=== PATIENT | male | born 1955 ===

== ENCOUNTER 2017-01-29 17:02 | Inpatient (IN) ==
[2017-01-29] MEDS ORDERED: NALOXONE HCL 0.4 MG/ML VIAL IV PRN (17:47)
[2017-01-29] MEDS ORDERED: ACETAMINOPHEN 325 MG TABLET PO PRN (17:47)
[2017-01-29] MEDS ORDERED: ONDANSETRON 4 MG/2 ML VIAL IV PRN (17:47)
[2017-01-29] MEDS ORDERED: PIPERACILLIN SODIUM/TAZOBACTAM 3.375 GM in DEXTROSE 5% IN WATER 50 ML IV SCH (18:00)
[2017-01-29] MEDS ORDERED: VANCOMYCIN PER PHARMACY IV SCH (18:03)
--- NOTE | 2017-01-29 19:04 | Internal Med History&Physical ---
Medical - H&P: HPI Patient information: Note initiated : 01/29/17 at 6:56 pm Service Date, if different from initiated Date: [] Patient: Graham Hilario 61 y/o M admitted on 01/29/17 for acute osteomyelitis. Chief Complaint: [] Chief complaint: fever, ankle pain. History of present illness: Mr. Hilario is a 61 year old pleasant male who presented to the outpatient clinic with 2 day history of left ankle pain, swelling and fever. The patient has h/o Transerythrin amylodisis with cardiomyopathy, s/p AICD, pacemaker placement, chr afib, on anticoagulation and follows at [facility]. The patient had a AICD/pacemaker placed last year in July at [facility], after the initial few weeks, the patient noted that there was increased erythema and swelling in the site of the implant. The patients redness was waxing and waning. In january this year, it opened and a significant amount of fluid was removed, since the last 4 weeks, there has been in termittent drainage and healing of the pacemaker implant site. The patient 2 days ago noted pain in the left ankle, initially as a stiffness but later progressed to pain, throbbing in nature, non radiating, 8/10 in severity, making it difficult for him to walk, pain improved with rest, worse with activity. patient pain was accompained by fever , chills and some rigor x 1 day. Pt presented to the clinic with the above symptoms, where he had a usg of the pacemaker pocket, X ray of the ankle, Fluid noted in both sites. S/p drainage by radiology, he had a temp of 100.5, given his possibility of septic arthritis and pacemaker pocket infection, patient was admitted to the hospital for further management. Review of systems: CONSTITUTIONAL: No weight loss, present fever, and chills, and weakness. HEENT: Eyes: No visual loss, blurred vision, double vision or yellow sclerae. Ears, Nose, Throat: No hearing loss, sneezing, congestion, runny nose or sore throat. SKIN: No rash or itching. CARDIOVASCULAR: No chest pain, chest pressure or chest discomfort. No palpitations or edema. RESPIRATORY: No shortness of breath, cough or sputum. GASTROINTESTINAL: No nausea, vomiting or diarrhea or constipation. No abdominal pain or blood in stools No Trini. GENITOURINARY: Denies Burning on urination. Blood in urine, or foul smelling urine NEUROLOGICAL: No headache, dizziness, syncope, paralysis, tremors, numbness or tingling in the extremities. No change in bowel or bladder control. MUSCULOSKELETAL: No muscle, back pain, joint pain or stiffness. HEMATOLOGIC: No bleeding or bruising. No enlarged nodes PSYCHIATRIC: No depression or anxiety. ENDOCRINOLOGIC: No reports of sweating, cold or heat intolerance. No polyuria or polydipsia. ALLERGIES: No hives, eczema or rhinitis. Skin: No rash, no jaundice, cyanosis or pallor. Medical - H&P: PMH Medical history: Medical History Atrial flutter (Chronic) Cardiomyopathy, secondary (Chronic) Closed fracture of clavicle (Chronic) Fracture of finger, closed (Chronic) Gastroesophageal reflux (Chronic) History of prostate cancer (Chronic) Hx of colonic polyps (Chronic) Hyperlipidemia (Chronic) Osteoarthritis (Chronic) Surgical history: Past Surgical History History of heart surgery (Chronic 06/19/16) History of radial keratotomy (Chronic) Hx of adenoidectomy (Chronic) Hx of appendectomy (Chronic) Hx of arthroscopic knee surgery (Chronic) Hx of carpal tunnel repair (Chronic) Hx of knee surgery (Chronic) Hx of lithotripsy (Chronic) Hx of radical prostatectomy (Chronic) Hx of tonsillectomy (Chronic) Hx of vasectomy (Chronic) Family history: reviewed and not pertinent Medical - H&P: Meds Home Medications Medication Instructions Recorded Confirmed Type furosemide 20 mg tablet 40 mg PO QDAY tab 10/30/15 01/29/17 History rivaroxaban 15 mg tablet 15 mg PO QDAY tab 10/30/15 01/29/17 History spironolactone 25 mg tablet 25 mg PO QDAY 10/30/15 01/29/17 History alprostadil 20 mcg intracavernosal 7.5 mcg INTRA-CAVE 3XW PRN #1 each 11/02/16 01/29/17 Rx kit Dofetilide 500 mcg PO Q12H 01/29/17 History Allergies Allergy/AdvReac Type Severity Reaction Status Date / Time No Known Drug Allergies Allergy Verified 01/29/17 14:40 Medical - H&P: Exam - Constitutional Vitals: Temp Pulse Resp BP Pulse Ox 98.8 F 80 20 108/83 100 01/29/17 17:50 04/28/17 17:50 01/29/17 17:47 01/29/17 17:50 01/29/17 17:50 Exam: GENERAL: The patient is a well-developed, well-nourished in no apparent distress. Is alert and oriented x3. VITAL SIGNS: Reviewed and as noted elsewhere. HEENT: Head is normocephalic and atraumatic. Extraocular muscles are intact. Pupils are equal, round, and reactive to light. Nares appeared normal. Mouth appears any without lesions. Mucous membranes are moist. NECK: Normal to inspection, Supple, No lymphadenopathy or thyromegaly. LUNGS: Air entry equal on both sides, no wheezing, crackles or rhonchi noted. No accessory muscles of respiration HEART: Regular rate and rhythm irregular, S1 and S2 heard, no Gallop, S3 or Rub Noted, No Gross murmur heard. ABDOMEN: Soft, nontender, and nondistended. Positive bowel sounds. No hepatosplenomegaly was noted. EXTREMITIES: No cyanosis, clubbing, rash, lesions or edema. NEUROLOGIC: Cranial nerves II through XII are grossly intact. Motor and Sensory System Grossly Intact PSYCHIATRIC: Normal affect, Normal Mood. Appropriate Behavior. SKIN: No ulceration or wounds noted, No jaundice, No rash noted. Chest wall- Pacemaker site noted, area of erthema over the skin, 1cms x 4 cm, no fluctuation noted. Medical - H&P: Reslt - Labs Labs: labs reviewed, done by pcp in the clinic. Medical - H&P: A/P - Narrative A/P Narrative: Assesstment Septic Arthritis/ Osteomyelitis : no h/o gout pacemaker site pocketinfection Atrial Fibrillation transerythrin amylodisis with cardiomyopathy, abnormal liver function test. Plan admit to telemetery Chest wall fluid and ankle fluid sent for analysis, await cultures', synovial fluid cell count crystal analysis pending. IV rocephin and vancomycin for now, Pt seems to be hemodynamically stable get cxr and ua, Will call [place] [facility] once suspicion confirmed for arthritis/ pacemaker site infection as the pacemaker will have to be removed. Dr Vail his local telegrapher agent has not seen him since he was referred to [place]. He will continue his home medications for now, asked to bring from home He has taken his AM pills which include new anti coagulation agent, will verify meds and resume as appropriate. Ortho Consult in AM once septic arthritis verified. Discussed with him the need for xfer to [facility] for pacemaker change may be needed if advised by [facility]. Diet cardiac Code full DVT- Oral anticoagulation. Social History - Social History marital status: education level: college occupational status: employed occupation: Teacher - Tobacco smoking status: Never smoker - Alcohol alcohol intake frequency: holiday/special occasion only
[2017-01-29 19:21] LABS: Appearance,Urine CLEAR; Bilirubin,Urine NEG (NEG); Color,Urine YELLOW; Glucose,Urine (UA) NEGATIVE (NEG); Leukocyte Esterase,Urine NEG /uL (NEG); Nitrate,Urine NEG (NEG); Protein,Urine NEG (NEG); Specific Gravity,Urine 1.015 (1.000-1.035); Urine Blood NEG mg/dL (<0.03); Urobilinogen,Urine NEG (NEG)
[2017-01-29] MEDS ORDERED: cefTRIAXone 2 GM VIAL ONE (20:26)
[2017-01-29] MEDS ORDERED: VANCOMYCIN 500 MG VIAL ONE (20:26)
[2017-01-29] MEDS: cefTRIAXone 2 GM in DEXTROSE 5% IN WATER 50 ML IV SCH (20:34)
[2017-01-29] MEDS: VANCOMYCIN 1,500 MG in 0.9 % SODIUM CHLORIDE 500 ML IV SCH (21:21)
[2017-01-29] MEDS: HYDROcodone/APAP 5/325MG TABLET PO PRN (23:29)
[2017-01-30 01:43] LABS: Lymphocytes,Synovial Fluid 13 %; Neutrophils,Synovial Fluid 73 % (0-25); Other Cells,Synovial Fluid 14 %
[2017-01-30 01:44] LABS: Appearance,Synovial Fluid CLOUDY; Color,Synovial Fluid YELLOW; Crystals,Body Fluid CA PYROPHOSPHATE (NONE SEEN)
[2017-01-30] MEDS: HYDROcodone/APAP 5/325MG TABLET PO PRN ×2 (03:57→09:04)
[2017-01-30 05:06] LABS: Basophils # (Auto) 0 K/mcL (0.0-0.3); Basophils % (Auto) 0.4 % (0.0-2.0); Eosinophils # (Auto) 0.1 K/mcL (0.0-0.7); Eosinophils % (Auto) 0.7 % (0.0-7.0); Lymphocytes # (Auto) 2.4 K/mcL (1.5-4.8); Lymphocytes % (Auto) 26.6 % (15.5-49.0); Mean Cell Volume 89.6 fL (80.0-100.0); Mean Corpuscular HGB Conc 32.6 g/dL (31.0-36.0); Mean Corpuscular Hemoglobin 29.2 pg (26.0-34.0); Monocytes # (Auto) 0.8 K/mcL (0.1-0.9); Monocytes % (Auto) 8.3 % (1.0-12.0); Platelet Count 173 K/mcL (140-440); RBC 4.64 M/mcL (4.50-5.90); Red Cell Distribution Width 15.1 % (11.5-14.5)
[2017-01-30 05:32] LABS: ALT/SGPT 17 U/l (0-40); Albumin 3.5 gm/dL (3.2-5.2); Albumin/Globulin Ratio 1.3 (1.0-2.3); Alkaline Phosphatase 66 U/L (39-117); Bilirubin,Direct 0.5 mg/dL (0.0-0.3); Blood Urea Nitrogen 16 mg/dl (6-20); Gamma Glutamyl Transpeptidase 77 U/L (8-61)
[2017-01-30] MEDS: cefTRIAXone 2 GM in DEXTROSE 5% IN WATER 50 ML IV SCH (08:11)
--- NOTE | 2017-01-30 08:12 | XRay Report ---
HISTORY: Reason for Exam:fever FINDINGS: The heart is moderately enlarged. There is no congestive heart failure. The lungs are clear and well expanded. No pleural effusion is present. Dual-chamber pacemaker appears well-positioned with the powerpack located in the left upper chest wall. Comparison with the prior exam from 02/09/13 shows the cardiomegaly is slightly worse. The pacemaker is new. IMPRESSION: Worsening cardiomegaly and no evidence of pneumonia Interpreted and Authenticated by: Easton Goodrich 01/30/17
[2017-01-30] MEDS ORDERED: DOFETILIDE 500 MCG PO SCH (09:00)
[2017-01-30] MEDS: SPIRONOLACTONE 25 MG TABLET PO SCH (09:04)
[2017-01-30] MEDS: FUROSEMIDE 20 MG TABLET PO SCH (09:04)
[2017-01-30] MEDS: VANCOMYCIN 1,500 MG in 0.9 % SODIUM CHLORIDE 500 ML IV SCH ×2 (09:05→20:55)
[2017-01-30] MEDS: RIVAROXABAN 15 MG TABLET PO SCH (09:05)
--- NOTE | 2017-01-30 11:51 | Internal Med Progress Note ---
Medical - PN: Subj Patient information: Note initiated : 01/30/17 at 11:51 am Service Date, if different from initiated Date: [] Patient: Graham Hilario 61 y/o M admitted on 01/29/17 for acute osteomyelitis. Chief Complaint: [] Interval history: Mr. Hilario is a 61 year old pleasant male who presented to the outpatient clinic with 2 day history of left ankle pain, swelling and fever. The patient has h/o Transerythrin amylodisis with cardiomyopathy, s/p AICD, pacemaker placement, chr afib, on anticoagulation and follows at [facility]. The patient had a AICD/pacemaker placed last year in July at [facility], after the initial few weeks, the patient noted that there was increased erythema and swelling in the site of the implant. The patients redness was waxing and waning. In january this year, it opened and a significant amount of fluid was removed, since the last 4 weeks, there has been intermittent drainage and healing of the pacemaker implant site. The patient 2 days ago noted pain in the left ankle, initially as a stiffness but later progressed to pain, throbbing in nature, non radiating, 8/10 in severity, making it difficult for him to walk, pain improved with rest, worse with activity. patient pain was accompanied by fever , chills and some rigor x 1 day. Pt presented to the clinic with the above symptoms, where he had a usg of the pacemaker pocket, X ray of the ankle, Fluid noted in both sites. S/p drainage by radiology, he had a temp of 100.5, given his possibility of septic arthritis and pacemaker pocket infection, patient was admitted to the hospital for further management. 01/30 : Pt seen examined, slept well overnight, no acute concerns, pt cultures are neg so far, pt has no fever overnight, pro calcitonin is 0.12, less likely candelario of systemic bacterial infection, TTE did not show any e/o vegetations, but pt does have lvh, rvh and infiltrative CM. Pt synovial fluid analysis shows inflammatory fluid, with WBC of 25K, crystal positive. gram stain neg. I called the [facility], pts provider not on service, will try to see if the oncall physician can guide us with regards to plan of care for pocket infection and suspicious infective arthritis vs pseudo gout flare. Start on naproxen bid for pseodogout. Pertinent ROS: Denies headache, dizziness Denies chest pain, palpitations Denies cough or shortness of breath Denies abdominal pain, nausea or vomiting. - Constitutional Vitals: Vital Signs Temp Pulse Resp BP Pulse Ox 97.4 F L 80 20 102/82 99 01/30/17 11:24 01/29/17 17:50 01/30/17 11:24 01/30/17 11:24 01/30/17 11:24 Period Temp Pulse Resp BP Sys/Blanca Pulse Ox Last 24 Hr 97.4 F-98.8 F 80-85 16-20 102-155/66-133 95-100 Intake and Output 01/29/17 01/30/17 01/30/17 21:59 05:59 13:59 Intake Total 640 / 640 842 / 842 Output Total 400 / 400 250 / 250 300 / 300 Balance -400 / -400 390 / 390 542 / 542 Weight 164 lb 9.6 oz Intake & Output: Intake & Output 01/29/17 01/30/17 01/30/17 21:59 05:59 13:59 Intake Total 640 / 640 842 / 842 Output Total 400 / 400 250 / 250 300 / 300 Balance -400 / -400 390 / 390 542 / 542 Weight 164 lb 9.6 oz Intake: IV 542 / 542 Vancomycin 1,500 mg In 500 / 500 Sodium Chloride 0.9% 500 ml @ 333.3 mls/hr IV Q12H [facility] Rx#:[id number] Rocephin 2 gm In Dextrose 42 / 42 5% in Water 50 ml @ 100 mls/hr IV Q24H [facility] Rx#: [id number] Oral 640 / 640 300 / 300 Output: Void Amount 400 / 400 250 / 250 300 / 300 Other: Meal Dinner Percent of Meal Consumed 100% Feeding Ability Independent # Voids 1 1 Exam: Constitutional; Afebrile, cooperative, alert, not in distress. Eyes- No icterus, , No periorbital swelling Ears- Ext ear normal, hearing normal to conversation. Neck- Midline trachea, supple Respiratory system: Air Entry equal on both sides, No crackles or wheezing, no rhonchi. CVS- Rate rhythm regular, S1,S2 heard, no gallop, no rub. Abdomen- Soft nontender abdomen, no organomegaly, no tenderness, no guarding or rigidity, PRESCRIPTION CLERK- AOOx3, moving all extremities, no gross focal deficit noted. Medical - PN: Obj Da - Labs CBC & Chem 7: 01/30/17 03:55 01/30/17 03:55 Labs: Abnormal Lab Results 01/30/17 01/30/17 01/29/17 03:55 03:55 19:00 RDW 15.1 H Total Bilirubin 4.6 H Direct Bilirubin 0.5 H GGT 77 H Synovial Neutrophils 73 H Meds: Medications Acetaminophen (Tylenol) 650 mg PO Q6HP PRN PRN Reason: PAIN/FEVER > 101 Acetaminophen/Hydrocodone Bitart ([place] 5/325mg) 1 tab PO Q4HP PRN PRN Reason: Pain Last Admin: 01/30/17 09:04 Dose: 1 tab Furosemide (Lasix) 40 mg PO QDAY [facility] Last Admin: 01/30/17 09:04 Dose: 40 mg Ceftriaxone Sodium 2 gm/ (Dextrose) 50 mls @ 100 mls/hr IV Q24H [facility] Last Infusion: 01/30/17 08:36 Dose: 100 mls/hr Vancomycin HCl 1,500 mg/ (Sodium Chloride) 500 mls @ 333.3 mls/hr IV Q12H [facility] Last Infusion: 01/30/17 10:48 Dose: Infused Naloxone HCl (Narcan) 0.1 mg IV Q2MIN PRN PRN Reason: Opiate Reversal Naproxen (Naprosyn) 500 mg PO BIDCC [facility] Ondansetron HCl (Zofran) 4 mg IV Q4HP PRN PRN Reason: Nausea And Vomiting Rivaroxaban (Xarelto) 15 mg PO QDAY [facility] Last Admin: 01/30/17 09:05 Dose: 15 mg Spironolactone (Aldactone) 25 mg PO QDAY [facility] Last Admin: 01/30/17 09:04 Dose: 25 mg Vancomycin HCl (Vancomycin Per Pharmacy) 1 order IV [facility] [place] Medical - PN: A/P - Time Spent With Patient Total time spent is greater than 50% in coordination of care (as documented) at patient's floor/unit and/or counseling patient: - Narrative A/P Narrative: Assesstment/ Plan Septic Arthritis/ Osteomyelitis : Unable to get MRI due to AICD, patient on vancomycin and Rocephin for now. await joint cultures. Pseudo gout: crystal positive, started on naproxen for now, await cultures. pacemaker site pocket infection: localized infection possible, cultures neg so far, on IV antibiotics, discuss case with [facility] as they placed the pacemaker on further plan, TTE neg for vegetations, (official read will be on file on wednesday) Atrial Fibrillation: rate controlled on anticoagulation transerythrin amylodisis with cardiomyopathy: stable clinically, no e/o overt heart failure. continue his clinical trial medication as home dose. DVT on oral anticoagulation Diet Cardiac Code full Medical - PN: Qual - VTE Deep Vein Thrombosis/Pulmonary Embolism Present on Admission: No
[2017-01-30] MEDS: NAPROXEN 250 MG TABLET PO SCH ×2 (12:56→17:32)
[2017-01-31 04:52] LABS: Basophils # (Auto) 0.1 K/mcL (0.0-0.3); Basophils % (Auto) 0.8 % (0.0-2.0); Eosinophils # (Auto) 0.2 K/mcL (0.0-0.7); Eosinophils % (Auto) 2.1 % (0.0-7.0); Granulocytes % (Auto) 58.5 % (38.0-78.0); Lymphocytes # (Auto) 2.4 K/mcL (1.5-4.8); Lymphocytes % (Auto) 30.2 % (15.5-49.0); Mean Cell Volume 90.2 fL (80.0-100.0); Mean Corpuscular HGB Conc 32.8 g/dL (31.0-36.0); Mean Corpuscular Hemoglobin 29.6 pg (26.0-34.0); Monocytes # (Auto) 0.7 K/mcL (0.1-0.9); Monocytes % (Auto) 8.4 % (1.0-12.0); Platelet Count 169 K/mcL (140-440); Red Cell Distribution Width 14.9 % (11.5-14.5)
[2017-01-31 05:17] LABS: ALT/SGPT 17 U/l (0-40); Albumin 3.3 gm/dL (3.2-5.2); Albumin/Globulin Ratio 1.2 (1.0-2.3); Alkaline Phosphatase 67 U/L (39-117); Bilirubin,Direct 0.5 mg/dL (0.0-0.3); Blood Urea Nitrogen 22 mg/dl (6-20); Gamma Glutamyl Transpeptidase 76 U/L (8-61); Magnesium 2.1 mg/dL (1.6-2.5); Uric Acid 6.8 mg/dL (2.5-8.0)
[2017-01-31] MEDS: FUROSEMIDE 20 MG TABLET PO SCH (08:58)
[2017-01-31] MEDS: NAPROXEN 250 MG TABLET PO SCH ×2 (08:58→18:01)
[2017-01-31] MEDS: SPIRONOLACTONE 25 MG TABLET PO SCH (08:58)
[2017-01-31] MEDS: RIVAROXABAN 15 MG TABLET PO SCH (08:59)
[2017-01-31] MEDS: cefTRIAXone 2 GM in DEXTROSE 5% IN WATER 50 ML IV SCH (08:59)
--- NOTE | 2017-01-31 09:39 | Internal Med Progress Note ---
Medical - PN: Subj Patient information: Note initiated : 01/31/17 at 9:35 am Service Date, if different from initiated Date: [] Patient: Graham Hilario 61 y/o M admitted on 01/29/17 for acute osteomyelitis. Chief Complaint: [] Interval history: Mr. Hilario is a 61 year old pleasant male who presented to the outpatient clinic with 2 day history of left ankle pain, swelling and fever. The patient has h/o Transerythrin amylodisis with cardiomyopathy, s/p AICD, pacemaker placement, chr afib, on anticoagulation and follows at [facility]. The patient had a AICD/pacemaker placed last year in July at [facility], after the initial few weeks, the patient noted that there was increased erythema and swelling in the site of the implant. The patients redness was waxing and waning. In january this year, it opened and a significant amount of fluid was removed, since the last 4 weeks, there has been intermittent drainage and healing of the pacemaker implant site. The patient 2 days ago noted pain in the left ankle, initially as a stiffness but later progressed to pain, throbbing in nature, non radiating, 8/10 in severity, making it difficult for him to walk, pain improved with rest, worse with activity. patient pain was accompanied by fever , chills and some rigor x 1 day. Pt presented to the clinic with the above symptoms, where he had a usg of the pacemaker pocket, X ray of the ankle, Fluid noted in both sites. S/p drainage by radiology, he had a temp of 100.5, given his possibility of septic arthritis and pacemaker pocket infection, patient was admitted to the hospital for further management. 01/30 : Pt seen examined, slept well overnight, no acute concerns, pt cultures are neg so far, pt has no fever overnight, pro calcitonin is 0.12, less likely candelario of systemic bacterial infection, TTE did not show any e/o vegetations, but pt does have lvh, rvh and infiltrative CM. Pt synovial fluid analysis shows inflammatory fluid, with WBC of 25K, crystal positive. gram stain neg. I called the [facility], pts provider not on service, will try to see if the oncall physician can guide us with regards to plan of care for pocket infection and suspicious infective arthritis vs pseudo gout flare. Start on naproxen bid for pseodogout. 01/31 Pt seen examined, labs reviewed, no acute overnight events, doing well, no pain, able to move his ankle well. He is on naproxen for pseudo gout, no fever, Cultures are negative still. I discussed case with gonzalo and Sharri. will wait for cultures to be positive if transfer is needed, if not will likely need to follow up with cardiology as outpatient for evaluating need for device exchange. Pertinent ROS: Denies headache, dizziness Denies chest pain, palpitations Denies cough or shortness of breath Denies abdominal pain, nausea or vomiting. - Constitutional Vitals: Vital Signs Temp Pulse Resp BP Pulse Ox 97.4 F L 76 14 109/60 97 01/31/17 04:00 01/31/17 04:00 01/31/17 04:00 01/31/17 04:00 01/31/17 04:00 Period Temp Pulse Resp BP Sys/Blanca Pulse Ox Last 24 Hr 97.4 F-98.4 F 73-86 14-20 102-125/60-86 95-99 Intake and Output 01/30/17 01/31/17 01/31/17 21:59 05:59 13:59 Intake Total 360 / 360 900 / 900 240 / 240 Output Total 300 / 300 100 / 100 Balance 60 / 60 800 / 800 240 / 240 Weight 171 lb 9.6 oz Intake & Output: Intake & Output 01/30/17 01/31/17 01/31/17 21:59 05:59 13:59 Intake Total 360 / 360 900 / 900 240 / 240 Output Total 300 / 300 100 / 100 Balance 60 / 60 800 / 800 240 / 240 Weight 171 lb 9.6 oz Intake: IV 500 / 500 Vancomycin 1,500 mg In 500 / 500 Sodium Chloride 0.9% 500 ml @ 333.3 mls/hr IV Q12H [facility] Rx#:[id number] Oral 360 / 360 400 / 400 240 / 240 Output: Void Amount 300 / 300 100 / 100 Other: Meal Dinner Breakfast Percent of Meal Consumed 100% 100% Feeding Ability Independent # Voids 2 1 Exam: Constitutional; Afebrile, cooperative, alert, not in distress. Eyes- No icterus, , No periorbital swelling Ears- Ext ear normal, hearing normal to conversation. Neck- Midline trachea, supple Respiratory system: Air Entry equal on both sides, No crackles or wheezing, no rhonchi. CVS- Rate rhythm regular, S1,S2 heard, no gallop, no rub. Abdomen- Soft nontender abdomen, no organomegaly, no tenderness, no guarding or rigidity, DIRECTOR OPERATING- AOOx3, moving all extremities, no gross focal deficit noted. Medical - PN: Obj Da - Labs CBC & Chem 7: 01/31/17 03:39 01/31/17 03:39 Labs: Abnormal Lab Results 01/31/17 01/31/17 01/31/17 07:55 03:39 03:39 Hgb 13.3 L Hct 40.6 L RDW 14.9 H BUN 22 H Total Bilirubin 2.9 H Direct Bilirubin 0.5 H GGT 76 H Synovial Neutrophils Vancomycin Trough 23.1 H* 01/30/17 01/30/17 01/29/17 03:55 03:55 19:00 Hgb Hct RDW 15.1 H BUN Total Bilirubin 4.6 H Direct Bilirubin 0.5 H GGT 77 H Synovial Neutrophils 73 H Vancomycin Trough Meds: Medications Acetaminophen (Tylenol) 650 mg PO Q6HP PRN PRN Reason: PAIN/FEVER > 101 Acetaminophen/Hydrocodone Bitart ([place] 5/325mg) 1 tab PO Q4HP PRN PRN Reason: Pain Last Admin: 01/30/17 09:04 Dose: 1 tab Furosemide (Lasix) 40 mg PO QDAY [facility] Last Admin: 01/31/17 08:58 Dose: 40 mg Ceftriaxone Sodium 2 gm/ (Dextrose) 50 mls @ 100 mls/hr IV Q24H [facility] Last Admin: 01/31/17 08:59 Dose: 100 mls/hr Naloxone HCl (Narcan) 0.1 mg IV Q2MIN PRN PRN Reason: Opiate Reversal Naproxen (Naprosyn) 500 mg PO BIDCC [facility] Last Admin: 01/31/17 08:58 Dose: 500 mg Ondansetron HCl (Zofran) 4 mg IV Q4HP PRN PRN Reason: Nausea And Vomiting Rivaroxaban (Xarelto) 15 mg PO QDAY [facility] Last Admin: 01/31/17 08:59 Dose: 15 mg Spironolactone (Aldactone) 25 mg PO QDAY [facility] Last Admin: 01/31/17 08:58 Dose: 25 mg Vancomycin HCl (Vancomycin Per Pharmacy) 1 order IV [facility] [place] Medical - PN: A/P - Time Spent With Patient Total time spent is greater than 50% in coordination of care (as documented) at patient's floor/unit and/or counseling patient: - Narrative A/P Narrative: Assessment/ Plan Septic Arthritis/ Osteomyelitis : Unable to get MRI due to AICD, patient on vancomycin and Rocephin for now. await joint cultures. neg so far. Pseudo gout: crystal positive, started on naproxen for now, await cultures. pacemaker site pocket infection: localized infection possible, cultures neg so far, on IV antibiotics, discuss case with [facility] as they placed the pacemaker on further plan, TTE neg for vegetations, AT this time, will monitor cultures, if remains neg, will d/c to home with outpatient cardiology follow up. Atrial Fibrillation: rate controlled on anticoagulation transerythrin amylodisis with cardiomyopathy: stable clinically, no e/o overt heart failure. continue his clinical trial medication as home dose. DVT on oral anticoagulation Diet Cardiac Code full Medical - PN: Qual - VTE Deep Vein Thrombosis/Pulmonary Embolism Present on Admission: No
[2017-01-31] MEDS: VANCOMYCIN 1,500 MG in 0.9 % SODIUM CHLORIDE 500 ML IV SCH (10:39)
[2017-02-01 05:44] LABS: Basophils # (Auto) 0.1 K/mcL (0.0-0.3); Basophils % (Auto) 0.7 % (0.0-2.0); Eosinophils # (Auto) 0.1 K/mcL (0.0-0.7); Eosinophils % (Auto) 1.9 % (0.0-7.0); Granulocytes % (Auto) 53.2 % (38.0-78.0); Lymphocytes # (Auto) 2.7 K/mcL (1.5-4.8); Lymphocytes % (Auto) 37.6 % (15.5-49.0); Mean Cell Volume 90.5 fL (80.0-100.0); Mean Corpuscular HGB Conc 32.5 g/dL (31.0-36.0); Mean Corpuscular Hemoglobin 29.4 pg (26.0-34.0); Monocytes # (Auto) 0.5 K/mcL (0.1-0.9); Monocytes % (Auto) 6.6 % (1.0-12.0); Platelet Count 168 K/mcL (140-440); RBC 4.38 M/mcL (4.50-5.90); Red Cell Distribution Width 15.4 % (11.5-14.5)
[2017-02-01 06:23] LABS: ALT/SGPT 18 U/l (0-40); Albumin 3.3 gm/dL (3.2-5.2); Albumin/Globulin Ratio 1.3 (1.0-2.3); Alkaline Phosphatase 69 U/L (39-117); Bilirubin,Direct 0.5 mg/dL (0.0-0.3); Blood Urea Nitrogen 23 mg/dl (6-20); Gamma Glutamyl Transpeptidase 75 U/L (8-61); Uric Acid 7.4 mg/dL (2.5-8.0); Vancomycin,Random 11.9 ug/ml
[2017-02-01] MEDS: NAPROXEN 250 MG TABLET PO SCH (08:59)
[2017-02-01] MEDS: SPIRONOLACTONE 25 MG TABLET PO SCH (08:59)
[2017-02-01] MEDS: FUROSEMIDE 20 MG TABLET PO SCH (08:59)
[2017-02-01] MEDS: RIVAROXABAN 15 MG TABLET PO SCH (09:00)
[2017-02-01] MEDS ORDERED: VANCOMYCIN 1,500 MG in 0.9 % SODIUM CHLORIDE 500 ML IV SCH (09:00)
[2017-02-01] MEDS: cefTRIAXone 2 GM in DEXTROSE 5% IN WATER 50 ML IV SCH (09:00)
--- NOTE | 2017-02-01 09:51 | Echocardiogram Report ---
ECHOCARDIOGRAM: 2-D and M-mode echocardiography with cardiac Doppler and color flow imaging were performed with a [employer] MX. Indication is endocarditis. Both atria appeared enlarged, the RA moderately so, the LA mildly so. RV and LV cavity size appeared normal. LV wall thickness appeared severely and concentrically increased. The myocardial texture appeared ''bright'' as can occur with amyloid. LV systolic performance appeared severely and globally depressed. Estimated ejection fraction is 25%. The aortic root appeared mildly dilated. The aortic valve appeared trileaflet and normal. There was no evidence for aortic stenosis by Doppler interrogation. No more than trivial aortic regurgitation was noted. The M-mode aortic echogram disclosed systolic convergence of the leaflets corroborating a low forward stroke volume. The mitral and tricuspid valves appeared structurally unremarkable. Doppler interrogation of LV inflow disclosed a so-called restrictive pattern as can be seen with heart failure. Mitral regurgitation, probably mild (1+), was demonstrated. Pulmonary venous interrogation disclosed ''d'' wave dominance indicating elevated pulmonary wedge pressure. The pulmonic valve was not well visualized. Pulmonary artery acceleration time appeared shortened. There was no evidence for pulmonic stenosis. Pulmonic regurgitation and tricuspid regurgitation, both probably trivial, were demonstrated. No intracardiac shunting was appreciated. There was no evidence for pericardial effusion. The IVC was dilated and did not vary with the respiratory cycle indicating raised CVP. PA systolic could not be calculated due to insufficient tricuspid regurgitation jet. Atrial fibrillation with a moderate response was present. CONCLUSION:Mild aortic root dilatation/aortic regurgitation, probably trivial. Small LV cavity with severely increased wall thickness/''bright'' myocardial texture as seen with amyloid and severely depressed systolic performance. Mitral regurgitation, probably mild (1+), with mild LA enlargement and elevated pulmonary wedge pressure. Moderate RA enlargement/raised CVP. Note: No vegetations were identified. Transesophageal echocardiography is superior to transthoracic echocardiography in detecting and delineating cardiac vegetations. Findings were discussed with Hospitalist Noemi Velasquez MD, 8:00 p.m., 01/29/17. (See accompanying M-mode and Doppler reports for quantitation.) ECHOCARDIOGRAPHY M-MODE CALCULATIONS: HT: 69'' WT: 164 BSA: 1.90 m2 NORMALS AORTA: AORTIC ROOT 3.9-4.2 2.0-3.7 cm LEFT ATRIUM 4.5 1.9-4.0 cm MITRAL VALVE: EXCURSION 2.0 1.9-2.7 cm EPSS 0.3 <0.5 cm LT VENTRICLE: LVID (ED) 4.5 3.5-5.7 cm LVID (ES) -- SEPTAL THICKNESS 2.0 0.6-1.1 cm SEPTAL EXCURSION -- 0.3-0.8 cm LVPW THICKNESS 1.6 0.6-1.1 cm LVPW EXCURSION 1.0 0.9-1.4 cm MINOR AXIS FS -- 25%-40% RT VENTRICLE: RVID (ED) 2.2 0.9-2.6 cm(up to 3cm if LLD) QUALITATIVE DOPPLER FLOW STUDIES MITRAL VALVE MR, probably mild (1+) AORTIC VALVE AR, probably trivial TRICUSPID VALVE TR, probably trivial PULMONIC VALVE AR, probably trivial QUANTITATIVE DOPPLER FLOW STUDIES SAMPLE SITES VELOCITIES PEAK PRESSURE VALVE AREA and/or VALVE WINDOW (PEAK,M/SEC) DROP (GRADIENT) PRESSURE HALF-TIME MV (Diastole) 1.0 -- -- MV (Systole) 4.0 -- -- AO (Diastole) 2.0 -- 474 msec AO (Systole) 0.8 -- -- TV (Systole) 1.7 -- -- PV (Systole) 1.0 -- -- PV (Diastole) 1.5 YOUNG:ney Job ID: [id number] Doc ID: [id number] Naveed Sylvester MD
--- NOTE | 2017-02-01 12:13 | Discharge Summary ---
Medical - DS: Prov Patient information: Note initiated : 02/01/17 at 12:11 pm Service Date, if different from initiated Date: [] Patient: Graham Hilario 61 y/o M admitted on 01/29/17 for acute osteomyelitis. Chief Complaint: [] Date of admission: 01/29/17 17:28 Discharge date: 02/01/17 Primary care physician: [f_Reg Prim Care Provider] Admitting clinician: Noemi Velasquez Discharging clinician: Noemi Velasquez Medical - DS: Meds - Discharge Medications Active and Home Medications: Home Medications furosemide 20 mg tablet 40 mg PO QDAY tab 10/30/15 [History Confirmed 01/29/17 Last Taken 01/29/17 08:00 40 mg] rivaroxaban 15 mg tablet 15 mg PO QDAY tab 10/30/15 [History Confirmed Last Taken 01/29/17 08:00 15 mg] spironolactone 25 mg tablet 25 mg PO QDAY 10/30/15 [History Confirmed 01/29/17 Last Taken 01/29/17 08:00 25 mg] alprostadil 20 mcg intracavernosal kit 7.5 mcg INTRA-CAVE 3XW PRN #1 each [Rx Confirmed 01/29/17 Last Taken Unknown] Medical - DS: Hosp Hospital course: Mr. Hilario is a 61 year old pleasant male who was directly admitted for concern for acute septic arthritis and pacemaker pocket site infection. Mr. Hilario is a 61 year old pleasant male who presented to the outpatient clinic with 2 day history of left ankle pain, swelling and fever. The patient has h/o Transerythrin amylodisis with cardiomyopathy, s/p AICD, pacemaker placement, chr afib, on anticoagulation and follows at [facility]. The patient had a AICD/pacemaker placed last year in July at [facility], after the initial few weeks, the patient noted that there was increased erythema and swelling in the site of the implant. The patients redness was waxing and waning. In january this year, it opened and a significant amount of fluid was removed, since the last 4 weeks, there has been intermittent drainage and healing of the pacemaker implant site. The patient 2 days ago noted pain in the left ankle, initially as a stiffness but later progressed to pain, throbbing in nature, non radiating, 8/10 in severity, making it difficult for him to walk, pain improved with rest, worse with activity. patient pain was accompanied by fever , chills and some rigor x 1 day. Pt presented to the clinic with the above symptoms, where he had a usg of the pacemaker pocket, X ray of the ankle, Fluid noted in both sites. S/p drainage by radiology, he had a temp of 100.5, given his possibility of septic arthritis and pacemaker pocket infection, patient was admitted to the hospital for further management. Septic Arthritis: Patient was treated with broad spectrum antibiotics rocephin and vancomycin, his esr was normal, crp mildly elevated, his procalcitonin was 0.12, all of which indicated low risk of severe infection, The patients ankle fluid analysis showed inflammatory synovial fluid and Calcium pyrophosphate crystals suggesting pseudogout. Pseudo Gout: Patient was initially treated with oral naproxen, given that we were not sure regarding culture, but once culture was negative, naproxen was stopped and a local steroid injection done by Radiology. NSAIDS / Systemic steroids not used given his chf Pacemaker site infection: The patient had a AICD/ Pacemaker placed at the [facility], he always had some erythema at that site but was actively draining from early this month. Cultures are negative at this time, however since the patient has a active discharge which is there, I reviewed his case with Dr Unger his EP physician at [facility], who advised device explantation. The patient can have this procedure done locally, I spoke with Dr Vince Navas, who is a shirt finisher with [facility], (Dr Lauri sanderson was on vacation). The patient will be seen tomorrow in their clinic for device explantation and consideration for new device placement. Echo done was neg for vegetations. The patient at this time is hemodynamically stable, no fever or chills, labs ok , he will be discharged home with follow up with his PCP and [employer] Discharge diagnosis: pseudogout, pacemaker site infection. - Time Spent with Patient Total time spent providing and/or coordinating discharge services: Greater than 30 minutes Medical - DS: Exam - Constitutional Vitals: Vital Signs Temp Pulse Resp BP BP Pulse Ox 02/01/17 11:45 97.3 F L 20 104/87 99 02/01/17 11:44 97.3 F L 20 104/87 99 02/01/17 07:50 98.8 F 84 16 124/80 02/01/17 04:00 97.5 F L 14 120/84 99 02/01/17 00:00 98.4 F 14 116/82 98 01/31/17 19:42 98.4 F 84 14 116/82 98 Intake and Output 01/31/17 02/01/17 02/01/17 21:59 05:59 13:59 Intake Total 840 / 840 400 / 400 Output Total 300 / 300 Balance 840 / 840 100 / 100 Intake: Oral 840 / 840 400 / 400 Output: Void Amount 300 / 300 Other: Meal Dinner Breakfast Percent of Meal Consumed 100% 100% Feeding Ability Independent # Voids 3 3 1 # Bowel Movements 1 Weight 173 lb 1 oz Additional comments: Constitutional; Afebrile, cooperative, alert, not in distress. Eyes- No icterus, , No periorbital swelling Ears- Ext ear normal, hearing normal to conversation. Neck- Midline trachea, supple Respiratory system: Air Entry equal on both sides, No crackles or wheezing, no rhonchi. CVS- Rate rhythm regular, S1,S2 heard, no gallop, no rub. Abdomen- Soft nontender abdomen, no organomegaly, no tenderness, no guarding or rigidity, [place] [employer]- AOOx3, moving all extremities, no gross focal deficit noted. Medical - DS: Data Labs on day of discharge: Labs from last 24 hours 02/01/17 02/01/17 02/01/17 05:00 05:00 05:00 WBC 7.3 RBC 4.38 L Hgb 12.9 L Hct 39.7 L MCV 90.5 MCH 29.4 MCHC 32.5 RDW 15.4 H Plt Count 168 MPV 9.4 Gran % 53.2 Lymph % (Auto) 37.6 Bladen % (Auto) 6.6 Eos % (Auto) 1.9 Baso % (Auto) 0.7 Gran # 3.9 Lymph # 2.7 Bladen # 0.5 Eos # 0.1 Baso # 0.1 Sodium 138 Potassium 4.0 Chloride 101 Carbon Dioxide 25 Anion Gap 12.0 BUN 23 H Creatinine 1.2 GFR Calculation 65 Glucose 81 Uric Acid 7.4 Calcium 8.9 Phosphorus 3.7 Magnesium 2.0 Total Bilirubin 2.3 H Direct Bilirubin 0.5 H GGT 75 H AST 29 ALT 18 Alkaline Phosphatase 69 Lactate Dehydrogenase 163 Total Protein 5.8 L Albumin 3.3 Globulin 2.5 Albumin/Globulin Ratio 1.3 Triglycerides 59 Random Vancomycin 11.9 Vancomycin Dose Not Reportable Vanco Last Dose Time Not Reportable Medical - DS: A/P - Patient/Caregiver Discharge Instructions Activity: increase activity as tolerated Diet: Cardiac Additional Instructions: Follow up with Cardiology tomorrow. Report to the ER if fever, shortness of breath or swelling in ankles. Use OTC tylenol for pain control for now. Follow up with your PCP in 2 weeks for follow up on pseudogout. - Follow up Plan Follow up with: Dao Choudhary MD [Primary Care Provider] - (Continue with follow up appointment as needed.) Vince Navas [Referring] - Disposition: Home, Self-Care Prognosis: Good Rehab Potential: Good I certify that the patient requires SNF services: No Overall status at discharge: patient is progressing back to baseline Medical - DS: Qual - VTE Deep Vein Thrombosis/Pulmonary Embolism Present on Admission: No
[2017-02-01] MEDS ORDERED: BUPIVACAINE 0.25% 50 ML VIAL IJ ONE (12:18)
[2017-02-01] MEDS ORDERED: IOHEXOL 180 10 ML VIAL IJ ONE (12:18)
[2017-02-01] MEDS ORDERED: TRIAMCINOLONE ACETONIDE 40 MG/ML VIAL INTRAARTIC ONE (12:18)
--- NOTE | 2017-02-01 15:36 | XRay Report ---
CLINICAL INFORMATION: Left ankle pain - pseudogout. COMPARISON: None. TECHNIQUE: The procedure and risks including possibility of bleeding, and infection were explained the patient. He understood and wished to proceed. With the patient supine on the fluoroscopy table and the ankle positioned neutrally, the anterior skin overlying the central/lateral ankle mortise was fluoroscopically marked, prepped and locally anesthetized 1% lidocaine to the level of the joint capsule using a 25-gauge needle. This same 25-gauge needle was advanced under fluoroscopic guidance into the joint space. Less than 1 cm Omnipaque 180 was injected confirming intra-articular position of the needle tip. Less than 1 cc of slightly sanguinous tinged joint fluid was aspirated and sent for Gram stain culture and sensitivity. There is no evidence of purulence in the joint fluid. 40 mg of the Kenalog admixed with 4 cc of 0.25% Sensorcaine were then injected and the needle was removed Patient was instructed to bear weight and ambulate: He claimed relief of symptoms.. IMPRESSION: Successful fluoroscopic guided aspiration and injection of glucocorticoids and anesthetic injection in the ankle mortise. He claimed relief of his symptoms. Less than 1 cc of slightly sanguinous joint fluid sent for Gram stain culture and sensitivity. Additional lab studies per attending physician Interpreted and Authenticated by: Vince Wilkins 02/01/17
== END 2017-02-01 13:15 | disposition home or self-care (01) | DRG 549 ==
LOC: ICU 17:28
PROVIDERS: ADMIT Internal Medicine; ATTEND Internal Medicine